=== PATIENT | male | born 1990 | race Caucasian/White ===

== ENCOUNTER 2017-03-28 15:38 | Emergency (ER) | payer OTHER, SELFPAY ==
[2017-03-28 15:41] VITALS: BP 128/79; PULSE 92; RESP 18; TEMP 37; O2SAT 98; BMI 31.6
--- NOTE | 2017-03-28 16:18 | EKG12_ITS ---
Test Reason : CP Blood Pressure : / mmHG Vent. Rate : 083 BPM Atrial Rate : 083 BPM P-R Int : 134 ms QRS Dur : 088 ms QT Int : 368 ms P-R-T Axes : 050 016 007 degrees QTc Int : 432 ms Normal sinus rhythm with sinus arrhythmia Normal ECG Confirmed by GARRISON STRANGE, NATALIIA ([id number]), newspaper editor LOYDA CHAIDEZ ([id number]) on 03/30/2017 1:47:03 PM Referred By: NAVIN Confirmed By:NATALIIA JI MD
--- NOTE | 2017-03-28 16:24 | RAD_ITS ---
STUDY: X-RAY CHEST REASON FOR EXAM: Male, 27 years old. Chest pain TECHNIQUE: Frontal and lateral views of the chest COMPARISON: None. FINDINGS: The lungs are clear. There are no pleural effusions. There is no pneumothorax. The heart is normal in size. The visualized osseous structures are within normal limits. RAD/Chest PA and Lateral IMPRESSION: No acute thoracic pathology. Electronically Signed: Rufus De La Garza, at 17:07 EST Tel , Service support ,
[2017-03-28 16:50] VITALS: O2SAT 99
--- NOTE | 2017-03-28 17:09 | ED.VISSUMM ---
- ER Visit Summary Date of Service: 03/28/17 Chief Complaint: Cough and chest pain History of Present Illness: The patient is a 27 M who presents with cough and chest pain. He initially began with congestion and rhinorrhea. He has had a nonproductive cough. He states his cough is getting worse over the past week. He has also developed sharp left-sided chest pain which is worse with inspiration coughing or palpation. No recent travel or surgery. No history of DVT or pulmonary embolism. He is not a smoker. Physical Examination: Afebrile vitals are stable Moist mucous membranes Heart regular rate and rhythm Lungs are clear Abdomen soft Alert Test Results: EKG shows normal sinus rhythm at a rate of 83. Chest x-ray PA and lateral on my review shows no acute process. Emergency Department Course and Treatment: Patient is PERC rule negative. I believe the patient has a viral bronchitis and associated chest wall strain. No pneumothorax. No obvious rib fracture. He was instructed on supportive care. He was given a prescription for naproxen. He understands to return for new or worsening symptoms. All questions answered bedside. Patient discharged. Treatment Plan: [] Disposition: Discharge Impression: Bronchitis Pleurisy This note was generated with [employer] dictation software. It may contain incorrect words, spelling, and punctuation that were not noted in review of the chart prior to signing ED Disposition - Plan for ED Patient: Chief Complaint: Cough Referrals: Care Physician,No Primary [Primary Care Provider] -
--- NOTE | 2017-03-28 17:11 | ED.DEP ---
ED Disposition - Plan for ED Patient: Chief Complaint: Cough Instructions: ED Chest Pain Pleurisy, Acute Bronchitis Prescriptions: Naproxen [Naprosyn] 500 mg PO BID #20 tab Referrals: Care Physician,No Primary [Primary Care Provider] -
[2017-03-28 17:39] VITALS: BP 129/79; PULSE 78; RESP 16; O2SAT 98
== END 2017-03-28 17:39 | disposition home or self-care (01) ==
LOC: ED 17:33
PROVIDERS: Emergency Provider Emergency Medicine
DX: R09.1 Pleurisy (principal); J40 Bronchitis, not specified as acute or chronic
CPT/HCPCS: 71046; 93005; 99282

== ENCOUNTER 2022-01-16 23:24 | Emergency (ER) | payer BC, SELFPAY ==
[2022-01-16 23:24] VITALS: BP 144/115; PULSE 123; RESP 16; TEMP 36.6; O2SAT 100; BMI 32.0
--- NOTE | 2022-01-16 23:57 | RAD_ITS ---
INDICATION: INJURY EXAMINATION/TECHNIQUE: X-RAY - RIGHT XR Wrist Min 3 Views 3 VIEWS COMPARISON: None. FINDINGS: SOFT TISSUES: No soft tissue swelling or gas. No radiopaque foreign body. BONES/JOINTS: No acute fracture or subluxation.. Normal alignment. Preservation of the joint space.. No sclerotic or destructive changes observed. RAD/Wrist min 3 Views IMPRESSION: No acute fracture or dislocation. Electronically Signed: Rafiq Poole MD at 0:12 EST ,
--- NOTE | 2022-01-17 00:02 | ED.RN ---
THIS RN OFFERED PT ICE PACK FOR RIGHT HAND/WRIST. PT DENIED ICE AND STATED IT WON'T DO ANYTHING. THIS RN EDUCATED THE PT ON BENEFITS OF APPLYING ICE TO INJURED HAND/WRIST. PT DENIED AGAIN.
[2022-01-17 00:49] VITALS: RESP 18
--- NOTE | 2022-01-17 00:53 | EX.ED.UPPERE ---
HPI History of Present Illness Chief Complaint: Upper Extremity Injury Narrative Narrative: Patient is a 31-year-old male with no significant past medical history. He states that he was off work for approximately 1 month as he was on paternity leave. 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 He states there is no direct trauma but he noticed after he finished work he had pain in his right forearm. He states as time has passed over the last few days he has noticed some increased pain which is making it difficult to move his arm and hold things. He states he has concern he damaged the forearm with his return to work and therefore comes in for evaluation. PFS PFS Medical History no medical history no medical history Home Medications prednisone 20 mg tablet 40 mg PO DAILY 7 days #14 tabs 01/17/22 [Rx Last Taken Unknown] Allergy/AdvReac Type Severity Reaction Status Date / Time amphetamine sulfate Allergy Hives Verified 01/16/22 23:45 [From Adderall] dextroamphetamine sulfate Allergy Hives Verified 01/16/22 23:45 [From Adderall] strawberry [strawberries] Allergy Hives Verified 01/16/22 23:45 Family History no significant family his Surgical History no surgical history Social History Smoking Status: Current every day smoker tobacco type: cigarettes ROS ROS ED Constitutional Constitutional ED: Denies chills or fever(s) ENT ENT ED: Denies sore throat Cardiovascular Cardiovascular: Denies chest pain Respiratory/Chest Respiratory/Chest: Denies cough or dyspnea Gastrointestinal Gastrointestinal: Denies abdominal pain, diarrhea, nausea or vomiting Genitourinary Genitourinary ED: Denies dysuria Musculoskeletal Musculoskeletal: Reports other Details: Positive right forearm pain ; Denies back pain or neck pain Integumentary Denies rash Neurologic Neurologic: Denies headache(s) Hematologic/Lymphatic Hematologic/Lymphatic: Denies easy bleeding or easy bruising EXAM Physical Exam Const Vital Signs: 01/16/22 23:24 01/17/22 00:49 Temperature 97.8 F Temperature Source Temporal Pulse Rate 123 H Respiratory Rate 16 18 Blood Pressure 144/115 H Blood Pressure Mean 124 Pulse Ox 100 Oxygen Delivery Method Room Air Positive well nourished and well developed General Appearance ED: well developed Eyes PERRL and EOMs intact bilaterally Neck full ROM and supple Resp normal respiratory effort and clear to auscultation bilaterally Cardio regular rhythm Rate: tachycardic and other Other Details: Radial pulses are plus 2 out of 4 bilaterally are equal and symmetric Extremity Extremity Narrative: Right upper extremity is neurovascularly intact; AIN/PIN are intact and normal. Active range of motion is decreased secondary to pain. There is no pain with palpation in the anatomical snuffbox. No overlying erythema or warmth no secondary soft tissue changes to suggest cellulitis or abscess no lymphangitic streaking noted. No obvious bony deformity or joint effusion appreciated. Neuro oriented x3 and CN's II-XII intact bilaterally Sensorium / Orientation: alert Psych mental status grossly normal Skin no rashes or lesions noted Skin Narrative: Capillary refills less than 2 seconds MDM MDM MDM Narrative Medical decision making narrative: Patient presented to the ER with pain to the right wrist/forearm with no reported trauma. Physical exam does not suggest infectious process. There are no overlying soft tissue changes to suggest DVT either. By physical exam there is no obvious laxity to the ligaments or tendons. An x-ray was obtained secondary to the patient's pain and shows no acute findings. Therefore at this time as patient has pain after overuse with negative x-rays and by exam no signs of ligamentous or tendon injury I feel this is a tendinitis. Patient will be given symptomatic care and is otherwise safe for discharge Radiography Diagnostic Testing: Clinical Impression(s) from Imaging Studies Wrist X-Ray 01/16/22 23:57 IMPRESSION: No acute fracture or dislocation. Electronically Signed: Rafiq Poole MD at 0:12 EST , Right wrist x-ray as interpreted by the emergency medicine physician reveals no acute fracture or dislocation Discharge Plan Triage Chief Complaint: Upper Extremity Injury ED Provider: Michael Escobedo Dx/Rx/DC Orders Clinical Impression: Tendinitis of right forearm Instructions: ED Tendonitis Prescriptions: New prednisone 20 mg tablet 40 mg PO DAILY 7 Days Qty: 14 0RF Primary Care Provider: Care Physician,No Primary Referrals: Bev Thomas DO [Med Staff - Active Staff] - Care Physician,No Primary [Primary Care Provider] - Disposition Disposition: Home, Self Care Discharge Date/Time: 01/17/22 01:21
== END 2022-01-17 01:21 | disposition home or self-care (01) ==
PROVIDERS: Emergency Provider Emergency Medicine; Visit Provider Emergency Medicine
DX: M77.9 Enthesopathy, unspecified (principal); M25.531 Pain in right wrist; F17.210 Nicotine dependence, cigarettes, uncomplicated
CPT/HCPCS: 73110; 99283